=== PATIENT | female | born 1960 | race Hispanic/Latino ===

== ENCOUNTER 2017-09-02 20:09 | Observation (INO) | payer SELFPAY ==
[2017-09-02] MEDS ORDERED: Acetaminophen 325 MG TAB ONE (23:50)
[2017-09-03] MEDS ORDERED: Acetaminophen 325 MG TAB PO PRN (01:06)
[2017-09-03 01:22] VITALS: BMI 28.7
[2017-09-03] MEDS: Benzonatate 100 MG CAP PO PRN (03:13)
[2017-09-03] MEDS ORDERED: Dextrose 50% Abboject 50 ML SYRINGE SLOW IVP PRN (08:57)
[2017-09-03] MEDS ORDERED: Dextrose 5% in Water 1,000 ML IV PRN (08:57)
[2017-09-03] MEDS ORDERED: DULoxetine 60 MG CAP PO SCH (09:00)
[2017-09-03] MEDS ORDERED: guaiFENesin 100 MG/5 ML UDCUP PO PRN (09:11)
[2017-09-03] MEDS: HYDROcodone/Acetaminophen 7.5/325 mg Tablet PO PRN ×2 (09:17→15:38)
[2017-09-03] MEDS ORDERED: Diabetic Tussin 200 MG/10 ML UDCUP PO PRN (10:17)
[2017-09-03] MEDS: tiZANidine HCl 4 MG TAB PO PRN (12:16)
[2017-09-03] MEDS: HumaLOG 300 UNITS/3 ML VIAL SC PRN (12:16)
[2017-09-03 13:03] LABS: Free T4 (Free Thyroxine) 1.68 ng/dL (0.70-1.48)
[2017-09-03] MEDS ORDERED: Calcium Carbonate 500 MG ChewTAB PO PRN (14:35)
[2017-09-03] MEDS ORDERED: Bisacodyl 10 MG SUPP PR PRN (14:35)
[2017-09-03] MEDS ORDERED: Bisacodyl 5 MG TAB PO PRN (14:35)
[2017-09-03] MEDS ORDERED: Senokot 8.6 MG TAB PO PRN (14:35)
[2017-09-03] MEDS ORDERED: Ondansetron HCl/PF 4 MG/2 ML Vial IVP PRN (14:35)
[2017-09-03] MEDS ORDERED: Metoprolol Tartrate 100 MG TAB PO SCH (15:00)
[2017-09-03] MEDS: Gabapentin 300 MG CAP PO SCH ×2 (15:36→20:30)
[2017-09-03] MEDS: Ibuprofen 800 MG TAB PO SCH ×2 (16:07→20:30)
[2017-09-03] MEDS: Methimazole 10 MG TAB PO SCH ×2 (16:10→20:30)
--- NOTE | 2017-09-03 16:30 | HP ---
CHIEF COMPLAINT: Difference between the patient and the record. The patient's record seems to indic ate that hypoglycemia, altered mental status, and seizure is the etiology for the patient's presentat ion. The patient herself has a chief complaint of chronic cough x1 year and left knee discomfort and chronic back pain. HISTORY OF PRESENT ILLNESS: This is a 56-year-old female with what sounds like prior history of seiz ures, insulin-dependent diabetes, chronic pain, who presents after reportedly having convulsions in h er car. The patient is an extremely poor historian and is very tangential in providing a history. She does n ot have any family with her at this point in time. The patient is also Hungarian-speaking only and a [employer] packing and shipping clerk was utilized at bedside. It appears that the patient has had prior seizures before. She thinks they may or may not be associa barbara with low blood sugars. Patient has never seen a neurologist for these presumed seizures and stat es that at home when her observed her having one of these episodes, he will place lemon and m ilk in her mouth. The patient states that she uses insulin for her diabetes and this is prescribed by her primary care doctor. She does not know much else regarding her own diabetes. She states that she sometimes gets hypoglycemic episodes as well. She does not keep a blood sugar log. It appears that the patient also recently saw her primary care doctor and was placed on 2 antibiotics including ciprofloxacin and methimazole for unclear reasons. The patient indicates that there is so me sort of "infection" and proximally in her head and neck region, but is unable to further giv e detail. REVIEW OF SYSTEMS: As per HPI. Constitutional: The patient overtly denies any fevers, chills, or s ignificant weight loss or gain. Denies any dizziness, changes in visions, or active headache at this point in time. Cardiovascular: No chest pain, no chest pressure, no left-sided arm numbness or tin gling. Respiratory: No active congestion. Cough is as noted above. No record changer the last year a nd it is grossly nonproductive. Denies any known sick contacts. Gastrointestinal: Denies any overt nausea, vomiting, abdominal pain, diarrhea, or constipation. Genitourinary: Denies any issues with dysuria or changes in urinary frequency, quality, quantity, or odor. Musculoskeletal: The patient reported head pain and neck pain in the emergency department, which is currently resolved. No other active complaint. PAST MEDICAL HISTORY: As noted above, the patient is unfortunately poor historian. 1. She has insulin-dependent diabetes. 2. Question of seizures in the past. 3. Hypertension. 4. Status post back surgery. 5. Status post knee surgery. HOME MEDICATIONS: Please see the EMR for full details. As best we can tell, the patient came in wit h a bag of medications including old medications and new medications. Looking at the medications mos t recently filled and presumed to be active, the list is as follows: Metoprolol tartrate 100 mg p.o. b.i.d., metformin 1000 mg p.o. b.i.d., duloxetine 60 mg p.o. b.i.d., tramadol 50 mg p.o. t.i.d., ibu profen 800 mg p.o. t.i.d., gabapentin 600 mg p.o. t.i.d., ciprofloxacin 500 mg p.o. q.12h, methimazol e 10 mg p.o. t.i.d., hydrocodone/acetaminophen 1 tab p.o. q.6 hours p.r.n., naloxegol Movantik 1 tab p.o. daily, tizanidine 1 tab p.o. q.8 hours p.r.n. ALLERGIES: No known drug allergies. FAMILY HISTORY: No known family history of seizure disorder. SOCIAL HISTORY: The patient denies any active alcohol, tobacco, or illicit drug use. She lives at [facility] with her . She is currently a FULL CODE. PHYSICAL EXAMINATION: GENERAL: The patient is awake, alert, conversant, lying in the hospital bed. HEENT: Normocephalic, atraumatic. Moist mucous membranes. Equal ocular motions are intact. CARDIOVASCULAR: S1, S2. Pulses 2+ bilateral upper extremities. No murmurs, rubs, or gallops. No p itting pedal edema. RESPIRATORY: Reasonable air movement. No wheezes, rales, or rhonchi. No conversational dyspnea. ABDOMEN: Positive bowel sounds, soft, nontender to palpation. MUSCULOSKELETAL: Moving all 4 extremities independently and able to self-reposition in the bed witho ut difficulty or assist. [facility]09/02/2017, CT of the brain, impression, mild prominence of the third vent ricle and the lateral ventricles, significance uncertain. Question Chiari 1 malformation. Follow up nonemergent brain MRI as suggested unless clinically indicated sooner. No intracranial hemorrhage, midline shift, or mass effect. WBC 6.8, hemoglobin 10.0, hematocrit 31.9, platelets 276. Sodium 138, potassium 4.7, chloride 107, b icarbonate 22, BUN 30, creatinine 1.3, glucose 25, calcium 8.8, magnesium 2.2, total bilirubin 0.2, A ST 19, ALT 15, alkaline phosphatase 78. Troponin 0.018. Total protein 6.4, albumin 3.6, T4 1.68, T3 4.98. TSH 0.0025. UA is significant for 100 of protein, 100 of glucose, and trace leukocyte estera se. ASSESSMENT: A 56-year-old female, who presents with multiple complaints, prominently hypoglycemia al pablo with seizures. 1. Seizure by history. Patient seems to give a history that these may be associated with hypoglycem ia and that this is not her first occurrence. I appreciate Neurology consultation. We will need to also evaluate the patient's episodic hypoglycemia and her medication for her insulin-dependent diabet es. Serial neurological examinations along with close monitoring. 2. Insulin-dependent diabetes. Check a hemoglobin A1c. Closely monitor the patient's blood sugar a nd oral intake as well. 3. Hypothyroidism, noted on admission. I do not see that the patient is currently on any levothyrox ine. We will recheck her TSH and along with a T3 and T4. If the patient does have noted hypothyroid ism as confirmed on serologies on recheck, then we will initiate levothyroxine with close monitoring. 4. A question of some type of sinus infection, currently on ciprofloxacin and methimazole. We will attempt to obtain PCP records for etiology. 5. Chronic cough x1 year. In the setting of noted possible Chiari [address] of the h ead, question is patient has a cough headache. Symptomatic management and further outpatient monitor ing. 6. Chronic pain. Discussed with the patient a concern regarding her chronic opioid use. We will tr y to down taper while inpatient with ultimate goal of discontinuation. 7. Diet: Diabetic. 8. Activity as tolerated. 9. Deep venous thrombosis prophylaxis with enoxaparin. Thank you for asking me to care for the patient. Greater than 45 minutes were spent at patient's bedside.
[2017-09-03 17:01] LABS: Anion Gap 14 mmol/L (10-20); BUN (Urea Nitrogen) 17 mg/dL (9.8-20.1); Calc. Creatinine Clearance 97 mL/min (70-130); Carbon Dioxide 23 mmol/L (22-29); Chloride 106 mmol/L (98-107); Estimated GFR-MDRD 76; Glucose 146 mg/dL (70-105); Magnesium 1.7 mg/dL (1.6-2.6); Potassium 4.9 mmol/L (3.5-5.1); Sodium 138 mmol/L (136-145)
[2017-09-03] MEDS: DULoxetine 60 MG CAP PO SCH (20:30)
[2017-09-03] MEDS: Ciprofloxacin 500 MG TAB PO SCH (20:32)
[2017-09-03] MEDS ORDERED: Metoprolol Tartrate 25 MG TAB PO SCH (21:00)
[2017-09-04] MEDS: hydrALAZINE 20 MG/ML VIAL SLOW IVP PRN ×2 (00:51→07:33)
[2017-09-04] MEDS: HYDROcodone/Acetaminophen 7.5/325 mg Tablet PO PRN ×3 (00:55→20:34)
[2017-09-04] MEDS: ALPRAZolam 0.25 MG TAB PO PRN (02:13)
--- NOTE | 2017-09-04 02:24 | CON ---
DATE OF CONSULTATION: 09/03/2017 REFERRING PROVIDER: Tomas Mcadams MD REASON FOR CONSULTATION: Seizure. HISTORY OF PRESENT ILLNESS: Ms. Jacobo is a pleasant 56-year-old female who has been concern ed for evaluation of a seizure-like episode. History is obtained from the patient as well as her dic tated H&P note. Patient's history was being translated by nurse water treatment technician as patient is a non-Engli sh speaking . The patient reports that she was driving with her spine and suddenly, her husb and noticed that she stopped talking. He also noticed that she was looking in a glazed eye and not p aying attention when he called her name, she did not respond; when they reached home, he noticed that she was not responsive to any verbal or noxious stimuli. She was diaphoretic at that time which pro mpted him to call EMS. Prior to arrival of the EMS, patient's symptoms had resolved. Patient report s that she has been having seizures over the past 1 year. In the past, her seizures were secondary t o hypoglycemia. She had mentioned that when she would have this type of spells, her would gi ve her milk and lemon in her mouth which would help improve her spells. She had seen a physician for these episodes in the past and was not given a diagnosis of seizure at that time. PAST MEDICAL HISTORY: Significant for diabetes, hypertension, questionable seizure disorder. PAST SURGICAL HISTORY: Significant for lumbar spine surgery and knee surgery. CURRENT MEDICATIONS: Please review MAR. ALLERGIES: No known drug allergies. FAMILY HISTORY: Noncontributory. SOCIAL HISTORY: She denies alcohol use, smoking or illicit drug use. She is . REVIEW OF SYSTEMS: As mentioned above in HPI, otherwise negative. PHYSICAL EXAMINATION: VITAL SIGNS: Blood pressure of 187/74, pulse of 101, temperature of 97.9, respirations of 16 with sa ts of 98% on room air. GENERAL: Well-developed, well-nourished female in no apparent distress. RESPIRATORY: Clear to auscultation bilaterally. CARDIOVASCULAR: Regular rate and rhythm. NEUROLOGIC: Mental status: Patient is awake, alert, oriented x3. Speech and language: Fluent spee ch. Cranial nerves: Pupils are 3 mm and reactive. Visual gray are intact. Extraocular muscles a re intact. No nystagmus. Face is symmetric. Tongue and uvula are midline. Motor exam showed floyd l tone and bulk with a 5/5 strength in both upper and lower extremities. Sensory: Sensation is inta ct and symmetric. Deep tendon reflexes 1+ reflex in both upper extremities. Babinski: Plantar resp onses flexion bilaterally. Gait and Romberg coordination not tested. LABORATORY DATA: Reviewed, which included CMP, which is significant for glucose of 146, hemoglobin A 1c of 7.0. TSH was less than 0.0025. Free T4 1.68, free T3 of 4.98, otherwise unremarkable. IMAGING STUDIES: CT head without contrast was reviewed, which showed no acute intracranial abnormali ty. IMPRESSION: Convulsions, unspecified. PLAN: Ms. Jacobo is a pleasant 56-year-old female who presented with recurrent episodes of s eizures. At this time, I will recommend starting her on Keppra 500 mg b.i.d. If she remains seizure free overnight, she is okay to be discharged to home with outpatient followup appointment in - we wa. Continue supportive care. Continue current medical regimen. Thank you for consultation.
[2017-09-04 04:55] LABS: #Eosinphils 0.3 thou/uL (0.0-0.7); #Lymphocytes 1.6 thou/uL (1.20-3.40); #Monocytes 0.5 thou/uL (0.11-0.59); #Neutrophils 1.7 thou/uL (1.40-6.50); %Basophils 0.5 % (0.0-1.0); %Eosinophils 6.5 % (0.0-10.0); %Lymphocytes 38.5 % (21.0-51.0); %Monocytes 12.4 % (0.0-10.0); Hemoglobin 10.3 g/dL (12.0-16.0); Mean Corpuscular HGB CONC 33.6 g/dL (32.0-36.0); Mean Corpuscular Hemoglobin 29.3 pg (27.0-31.0); Mean Corpuscular Volume 87.4 fL (78.0-98.0); Mean Platelet Volume 7.3 fL (7.4-10.4); Platelet Count 227 thou/uL (130-400); RBC Distribution Width 12.7 % (11.5-14.5); Red Blood Cell (RBC) Count 3.53 mill/uL (4.20-5.40); White Blood Cell (WBC) Count 4.1 thou/uL (4.8-10.8)
[2017-09-04 05:09] LABS: Anion Gap 10 mmol/L (10-20); BUN (Urea Nitrogen) 16 mg/dL (9.8-20.1); Calc. Creatinine Clearance 106 mL/min (70-130); Calcium 8.8 mg/dL (7.8-10.44); Carbon Dioxide 26 mmol/L (22-29); Chloride 105 mmol/L (98-107); Estimated GFR-MDRD 83; Glucose 175 mg/dL (70-105); Potassium 4.2 mmol/L (3.5-5.1); Sodium 137 mmol/L (136-145)
[2017-09-04] MEDS: Gabapentin 300 MG CAP PO SCH ×3 (07:33→20:34)
[2017-09-04] MEDS: Metoprolol Tartrate 100 MG TAB PO SCH ×2 (08:46→20:34)
[2017-09-04] MEDS: DULoxetine 60 MG CAP PO SCH ×2 (08:47→20:34)
[2017-09-04] MEDS: Ciprofloxacin 500 MG TAB PO SCH ×2 (08:47→20:34)
[2017-09-04] MEDS: Methimazole 10 MG TAB PO SCH ×3 (08:47→20:55)
[2017-09-04] MEDS: Enoxaparin Sodium 40 MG/0.4 ML SYRINGE SC SCH (08:48)
[2017-09-04] MEDS: Ibuprofen 800 MG TAB PO SCH ×3 (08:50→20:34)
[2017-09-04] MEDS ORDERED: Enoxaparin Sodium 30 MG/0.3 ML SYRINGE SC SCH (09:00)
[2017-09-04] MEDS ORDERED: levETIRAcetam 500 MG TAB PO SCH ×2 (11:30)
[2017-09-04] MEDS: tiZANidine HCl 4 MG TAB PO PRN (11:45)
[2017-09-04] MEDS: HumaLOG 300 UNITS/3 ML VIAL SC PRN ×3 (11:45→20:35)
--- NOTE | 2017-09-04 13:58 | EKG ---
Test Reason : Blood Pressure : / mmHG Vent. Rate : 103 BPM Atrial Rate : 103 BPM P-R Int : 150 ms QRS Dur : 074 ms QT Int : 350 ms P-R-T Axes : 062 039 065 degrees QTc Int : 458 ms Sinus tachycardia Otherwise normal ECG No previous ECGs available Confirmed by IRINA HANSEN ([id number]) on 09/04/2017 1:58:13 PM Referred By: AZIZA Confirmed By:IRINA HANSEN
[2017-09-04] MEDS: levETIRAcetam 500 MG TAB PO SCH (20:34)
--- NOTE | 2017-09-04 23:25 | PDOC.PN ---
- Objective Resuscitation Status: Resuscitation Status FULL:Full Resuscitation Vital Signs & Weight: Vital Signs (12 hours) Temp Pulse Resp BP BP Pulse Ox 09/04/17 20:34 97.9 F 72 16 09/04/17 19:11 97.9 F 72 16 163/72 H 98 09/04/17 18:09 79 09/04/17 15:13 97.5 F L 152/67 H 69 L 09/04/17 12:18 173/72 H 09/04/17 11:30 98.2 F 77 18 188/75 H 98 Weight Weight 169 lb 12.8 oz I&O: 09/03/17 09/04/17 09/05/17 06:59 06:59 06:59 Intake Total 10 1000 450 Output Total 2550 1300 Balance 94 -7614 -279 Result Diagrams: 09/04/17 04:01 09/04/17 04:01 Additional Labs: Accuchecks 09/04/17 09/04/17 09/04/17 20:37 16:52 10:45 POC Glucose 249 H 208 H 237 H Dx/Plan - Plan * .
[2017-09-05] MEDS: hydrALAZINE 20 MG/ML VIAL SLOW IVP PRN ×2 (05:01→20:10)
[2017-09-05] MEDS: HYDROcodone/Acetaminophen 7.5/325 mg Tablet PO PRN (05:01)
[2017-09-05 05:04] LABS: #Eosinphils 0.3 thou/uL (0.0-0.7); #Lymphocytes 1.8 thou/uL (1.20-3.40); #Monocytes 0.6 thou/uL (0.11-0.59); #Neutrophils 1.8 thou/uL (1.40-6.50); %Eosinophils 6.7 % (0.0-10.0); %Lymphocytes 39.3 % (21.0-51.0); %Monocytes 12.8 % (0.0-10.0); %Neutrophils 40.2 % (42.0-75.0); Hemoglobin 10.4 g/dL (12.0-16.0); Mean Corpuscular HGB CONC 33.5 g/dL (32.0-36.0); Mean Corpuscular Hemoglobin 29.4 pg (27.0-31.0); Mean Platelet Volume 7.4 fL (7.4-10.4); Platelet Count 242 thou/uL (130-400); RBC Distribution Width 12.5 % (11.5-14.5); Red Blood Cell (RBC) Count 3.54 mill/uL (4.20-5.40); White Blood Cell (WBC) Count 4.5 thou/uL (4.8-10.8)
[2017-09-05 05:12] LABS: Anion Gap 11 mmol/L (10-20); BUN (Urea Nitrogen) 20 mg/dL (9.8-20.1); Calc. Creatinine Clearance 93 mL/min (70-130); Calcium 9.3 mg/dL (7.8-10.44); Carbon Dioxide 28 mmol/L (22-29); Chloride 105 mmol/L (98-107); Estimated GFR-MDRD 71; Glucose 183 mg/dL (70-105); Potassium 5.1 mmol/L (3.5-5.1); Sodium 139 mmol/L (136-145)
[2017-09-05] MEDS: HumaLOG 300 UNITS/3 ML VIAL SC PRN ×2 (06:28→13:25)
[2017-09-05] MEDS: Gabapentin 300 MG CAP PO SCH ×3 (09:29→20:09)
[2017-09-05] MEDS: Ibuprofen 800 MG TAB PO SCH ×3 (09:29→20:09)
[2017-09-05] MEDS: Metoprolol Tartrate 100 MG TAB PO SCH ×2 (09:30→20:08)
[2017-09-05] MEDS: DULoxetine 60 MG CAP PO SCH ×2 (09:30→20:09)
[2017-09-05] MEDS: Enoxaparin Sodium 40 MG/0.4 ML SYRINGE SC SCH (09:30)
[2017-09-05] MEDS: Methimazole 10 MG TAB PO SCH ×3 (09:30→20:10)
[2017-09-05] MEDS: levETIRAcetam 500 MG TAB PO SCH ×2 (09:30→20:09)
[2017-09-05] MEDS: Ciprofloxacin 500 MG TAB PO SCH ×2 (09:30→20:09)
[2017-09-05] MEDS: ALPRAZolam 0.25 MG TAB PO PRN ×2 (13:26→20:11)
[2017-09-05 13:39] LABS: EliA Thy New Method **** NEW METHOD ****
[2017-09-06] MEDS: ALPRAZolam 0.25 MG TAB PO PRN (03:11)
[2017-09-06] MEDS: hydrALAZINE 20 MG/ML VIAL SLOW IVP PRN (03:11)
--- NOTE | 2017-09-06 04:27 | PDOC.EVN ---
Event Note - Event Note Event Note: late entry for 09/05/2017 no new issues overnight pt is awaiting MSMR screening for suicidal ideation as endorsed by patient during this hospitalization otherwise medically cleared
[2017-09-06 04:31] LABS: #Eosinphils 0.4 thou/uL (0.0-0.7); #Lymphocytes 1.7 thou/uL (1.20-3.40); #Monocytes 0.5 thou/uL (0.11-0.59); #Neutrophils 2.3 thou/uL (1.40-6.50); %Basophils 0.4 % (0.0-1.0); %Eosinophils 7.3 % (0.0-10.0); %Lymphocytes 34.1 % (21.0-51.0); %Monocytes 10.9 % (0.0-10.0); %Neutrophils 47.3 % (42.0-75.0); Mean Corpuscular HGB CONC 33.6 g/dL (32.0-36.0); Mean Corpuscular Hemoglobin 29.3 pg (27.0-31.0); Mean Corpuscular Volume 87.1 fL (78.0-98.0); Mean Platelet Volume 7.2 fL (7.4-10.4); Platelet Count 253 thou/uL (130-400); RBC Distribution Width 12.5 % (11.5-14.5); Red Blood Cell (RBC) Count 3.75 mill/uL (4.20-5.40); White Blood Cell (WBC) Count 4.9 thou/uL (4.8-10.8)
[2017-09-06 04:41] LABS: Anion Gap 12 mmol/L (10-20); BUN (Urea Nitrogen) 20 mg/dL (9.8-20.1); Calc. Creatinine Clearance 96 mL/min (70-130); Calcium 9.4 mg/dL (7.8-10.44); Carbon Dioxide 25 mmol/L (22-29); Chloride 105 mmol/L (98-107); Estimated GFR-MDRD 74; Glucose 240 mg/dL (70-105); Potassium 4.5 mmol/L (3.5-5.1); Sodium 137 mmol/L (136-145)
[2017-09-06] MEDS: HumaLOG 300 UNITS/3 ML VIAL SC PRN (06:00)
--- NOTE | 2017-09-06 06:33 | PDOC.EVN ---
Event Note - Event Note Event Note: spoke with mental health person who states pt is ok to be discharged home.
[2017-09-06] MEDS: HYDROcodone/Acetaminophen 7.5/325 mg Tablet PO PRN (07:44)
[2017-09-06] MEDS ORDERED: Insulin NPH/Reg Insulin Hm 300 UNITS/3 ML VIAL SC SCH ×2 (09:00→21:00)
[2017-09-06] MEDS: Ciprofloxacin 500 MG TAB PO SCH (09:26)
[2017-09-06] MEDS: DULoxetine 60 MG CAP PO SCH (09:26)
[2017-09-06] MEDS: Gabapentin 300 MG CAP PO SCH ×2 (09:27→14:43)
[2017-09-06] MEDS: Ibuprofen 800 MG TAB PO SCH ×2 (09:27→14:42)
[2017-09-06] MEDS: Enoxaparin Sodium 40 MG/0.4 ML SYRINGE SC SCH (09:27)
[2017-09-06] MEDS: Metoprolol Tartrate 100 MG TAB PO SCH (09:27)
[2017-09-06] MEDS: levETIRAcetam 500 MG TAB PO SCH (09:27)
[2017-09-06] MEDS: Benzonatate 100 MG CAP PO PRN (09:28)
[2017-09-06] MEDS: Methimazole 10 MG TAB PO SCH ×2 (09:28→14:44)
--- NOTE | 2017-09-06 13:22 | RAD ---
2 VIEWS CHEST: Date: 09/06/17 PROVIDED CLINICAL HISTORY: Cough. FINDINGS: Comparison is made with the study dated 01/28/08. Cardiac and mediastinal silhouette is within normal limits. There is a somewhat stellate opacity in t he right suprahilar region along with prominence of each hilar region. Lungs appear otherwise clear. No pleural fluid or pneumothorax apparent. Vascular calcifications are seen. IMPRESSION: Right suprahilar opacity and possibly bilateral hilar lymph node enlargement. Correlation with chest CT recommended. CODE T. POS: [facility]
[2017-09-06] MEDS ORDERED: ALPRAZolam 0.25 MG TAB PO SCH (13:45)
--- NOTE | 2017-09-06 15:15 | PDOC.PN ---
- Subjective Encounter Start Date: 09/06/17 Encounter Start Time: 13:00 Patient requested something to keep her heart from racing. She also reports that her blood pressure is not well controlled. She is thinking about changing her PCP because it is too difficult to get from [place] to [place]. Still has some cough. - Objective Resuscitation Status: Resuscitation Status FULL:Full Resuscitation Vital Signs & Weight: Vital Signs (12 hours) Temp Pulse Resp BP BP Pulse Ox 09/06/17 11:49 98.4 F 78 20 130/102 H 98 09/06/17 07:45 97.6 F 80 16 09/06/17 07:34 97.6 F 80 16 157/79 H 97 09/06/17 06:03 97.6 F 76 20 174/72 H 96 Weight Weight 168 lb 3.2 oz I&O: 09/05/17 09/06/17 09/07/17 06:59 06:59 06:59 Intake Total 800 1280 660 Output Total 2250 1350 Balance -1450 -70 660 Result Diagrams: 09/06/17 04:14 09/06/17 04:14 Additional Labs: Accuchecks 09/06/17 09/06/17 09/05/17 11:53 06:02 21:37 POC Glucose 293 H 201 H 257 H 09/05/17 17:19 POC Glucose 156 H Phys Exam - Physical Examination Constitutional: NAD HEENT: oral pharynx no lesions Respiratory: no wheezing, no rales, no rhonchi, clear to auscultation bilateral Cardiovascular: RRR, no significant murmur, no rub Gastrointestinal: soft, non-tender, no distention, positive bowel sounds Musculoskeletal: no edema Psychiatric: normal affect Dx/Plan (1) Cough Code(s): R05 - COUGH Status: Acute Comment: CXR done today indicated an opacity at the right hilum. Will get CT. (2) Diabetes Code(s): E11.9 - TYPE 2 DIABETES MELLITUS WITHOUT COMPLICATIONS Status: Acute Comment: Had hypoglycemia concerns. Her current hospital dosing appears to be working well. Plan on discharging with that dose. (3) Seizure disorder Code(s): G40.909 - EPILEPSY, UNSP, NOT INTRACTABLE, WITHOUT STATUS EPILEPTICUS Status: Acute Comment: Started on Keppra. Will continue on with that. (4) Hypertension Code(s): I10 - ESSENTIAL (PRIMARY) HYPERTENSION Status: Acute Comment: Trying to avoid making any major changes in her meds. Should follow up with her PCP. On high dose beta nabor for hyperthyroidism. (5) Hyperthyroidism Code(s): E05.90 - THYROTOXICOSIS, UNSP WITHOUT THYROTOXIC CRISIS OR STORM Status: Acute Comment: Continue methimazole and beta nabor. TSH was normal. (6) Suicidal ideation Code(s): R45.851 - SUICIDAL IDEATIONS Status: Acute Comment: Cleared by [facility] for discharge. - Plan * .
[2017-09-06 15:28] VITALS: TEMP 98.1
--- NOTE | 2017-09-06 15:33 | CT ---
CT CHEST WITHOUT CONTRAST: Date: 09/06/17 PROVIDED CLINICAL HISTORY: Abnormal chest radiograph, cough. FINDINGS: The heart, pericardium, and great vessels are suboptimally evaluated without IV contrast, but demonst rate an unremarkable unenhanced CT appearance, with the exception of vascular calcification, includin g coronary calcium. There is conspicuous calcification at the origin of the left subclavian artery. Prominence of each hilar region radiographically is on the basis of prominence of the hilar vasculatu re. No definite evidence for lymph node enlargement with limitations due to lack of IV contrast. There is no concerning pulmonary parenchymal opacity with findings seen on chest radiograph likely on the basis of superimposition of normal structures. The airway appears patent and of normal caliber. There is no pleural fluid or pneumothorax apparent. The visualized portions of the upper abdomen demonstrate an unremarkable unenhanced CT appearance. Sm all gallstones are seen. The osseous structures demonstrate no concerning lytic or blastic lesions. IMPRESSION: 1. Abnormalities seen on chest radiograph are artifactual. 2. No evidence for an acute process. 3. Conspicuous atherosclerosis. 4. Cholelithiasis. POS: [facility]
[2017-09-06 16:20] VITALS: BP 168/75
--- NOTE | 2017-09-07 09:02 | DIS ---
DATE OF ADMISSION: 09/02/2017 DATE OF DISCHARGE: 09/06/2017 HISTORY OF PRESENT ILLNESS: The patient presented to the emergency department with giving some chall enging history. The patient apparently had some history of hypoglycemia and hyperthyroidism. She wa s transferred with the complaint of these things stating she recalled nothing. When she woke up, she was told she was in a car, having convulsions. Stated she has had this happen before twice, but has not followed up with anyone apparently prior to coming this facility. They indicated her blood gluc ose was 31 and she received 2 amps of D50. She had some generalized musculoskeletal symptoms and was subsequently noted to have generally stable vital signs. The patient had reported a chronic cough f or 1 year. She had been treated by her physician and was on Cipro at that time. It was felt that e patient was likely suffering from some hypoglycemia. A CT scan in the emergency department was per formed which revealed some enlargement of the third and fourth ventricles, but was felt not likely to be relevant to the current symptoms. HOSPITAL COURSE: The patient was admitted with hypoglycemia and possibly related to seizure. Neurol ogy was consulted and felt the patient would benefit from being on Keppra, which was initiated. The patient tolerated that well. The patient apparently developed some suicidal ideations as well and nelson bsequently [facility] was consulted. The patient had reported some strange incidents occurring at home inv olving her . Her did present to the facility and said that ____. She was ultimately evaluated by [facility] and cleared by them. Subsequently, a chest x-ray performed on the day of discharge revealed a possible stellate abnormality in the right hilar area. A CT scan was then performed of t he chest, which was essentially unremarkable and the x-ray findings were felt to be artifactual. Giv en that she was cleared by [facility] and Neurology, she was felt to be stable for discharge to home to [facility] outpatient followup. I had extensive conversation with the patient and her regarding her s ituation and need for followup. DISPOSITION: The patient is discharged to home. Her activity level is as tolerated. She is to be o n a diabetic diet. She will be on a reduced dose of 70/30 insulin which managed her blood sugar quit e well in the hospital at 10 units subcutaneously at bedtime and 20 units subcu q.a.m. She will also be on a new prescription for Keppra 500 mg b.i.d. She will continue with Movantik 1 ta b p.o. daily, tizanidine q.8 hours p.r.n. Her home pain medication with [place] q.6 hours p.r.n., Cipr o 500 q.12 hours, pantoprazole 10 mg t.i.d. She will also be on her usual metoprolol 100 mg p.o. b.i .d., tramadol 50 mg t.i.d., duloxetine 60 mg b.i.d., ibuprofen 800 mg t.i.d., gabapentin 600 t.i.d., and metformin 1000 mg b.i.d. She is to follow up with her PCP, although she is in the process of attempting to change her PCP to spencer morales ____ genaro. She can return to the emergency department should she have any problems prior to that time. The patient is also to follow up with Dr. Escobedo as instructed within 4-6 weeks.
== END 2017-09-06 18:12 | disposition home or self-care (01) ==
LOC: ERS 20:09 → EEVIPCON 23:20 → 2SW 23:20
PROVIDERS: ADMIT Family Medicine; ATTEND Family Medicine
DX: G40.909 Epilepsy, unspecified, not intractable, without status epilepticus (principal); E05.90 Thyrotoxicosis, unspecified without thyrotoxic crisis or storm; I10 Essential (primary) hypertension; R45.851 Suicidal ideations; E03.9 Hypothyroidism, unspecified; E11.649 Type 2 diabetes mellitus with hypoglycemia without coma; Z79.899 Other long term (current) drug therapy
CPT/HCPCS: 36415; 36416; 71046; 71250; 80048; 80307; 83036; 83735; 84439; 84443; 84481; 85025; 86376; 86800; 93005; 93010; 95816; 95819; 96372; 96374; 96376; A4216; G0378; J0360; J1650

== ENCOUNTER 2019-05-27 22:29 | Observation (INO) | payer SELFPAY ==
[2019-05-27] MEDS ORDERED: Morphine 4 MG/ML VIAL ONE (22:58)
[2019-05-27] MEDS ORDERED: Nitroglycerin 0.4 MG TAB (25 Tab Bottle) PO PRN (23:12)
[2019-05-27] MEDS ORDERED: Acetaminophen 325 MG TAB PO PRN (23:12)
[2019-05-27] MEDS ORDERED: Dextrose 50% Abboject 50 ML SYRINGE SLOW IVP PRN (23:18)
[2019-05-27] MEDS ORDERED: Dextrose 5% in Water 1,000 ML IV PRN (23:18)
[2019-05-27 23:21] LABS: Troponin I Less than 0.010 ng/mL (< 0.028)
[2019-05-27] MEDS ORDERED: HYDROcodone/Acetaminophen 5/325 mg Tablet PO PRN (23:38)
--- NOTE | 2019-05-28 00:20 | HP ---
CHIEF COMPLAINT: Chest pain. HISTORY OF PRESENT ILLNESS: Ms. Jacobo is a 58-year-old female with past medical history of diabetes mellitus, hypertension, and hyperlipidemia, presents to [place] ED with chief complaint of chest pain, this has been going on for 4 months. In the emergency room, the patient had a systolic blood pressure of 237, for which she was given 10 mg of IV labetalol. The blood pressure dropped to 130. The patient also noted to have a blood sugar more than 400. Given 5 units of insulin in the ED. The patient became diaphoretic with a blood glucose less than 70. Given lunch box. The D-dimer was elevated, CT angiogram of the chest showed no evidence of pulmonary embolism. The patient denies shortness of breath. The patient's initial troponin negative. Initial EKG; no acute finding. The patient is being admitted to hospital for further management. PAST MEDICAL HISTORY: As mentioned above in History of Present Illness. PAST PSYCHIATRIC HISTORY: Anxiety and depression. PAST SURGICAL HISTORY: 1. Back surgery. 2. Right knee surgery. SOCIAL HISTORY: She denies smoking, alcohol drinking, or drug abuse. FAMILY HISTORY: Reviewed and noncontributory. ALLERGIES: NO KNOWN ALLERGIES. HOME MEDICATIONS: Please see home medication reconciliation form for updated medications. REVIEW OF SYSTEMS: Review of 14 systems negative except what is mentioned in History of Present Illness. PHYSICAL EXAMINATION: GENERAL: The patient is awake, alert, in mild distress, anxious. VITAL SIGNS: Blood pressure 164/86, pulse is 88, respiratory rate is 16, and pulse oximetry is 99% on room air. HEENT: Head and neck; normocephalic, atraumatic. NECK: Supple. No JVD. CHEST: Fair bilateral air entry. CHEST WALL: Left chest wall tenderness. HEART: S1, S2. Regular. ABDOMEN: Soft, nontender. Bowel sounds present. NEUROLOGIC: Awake, alert, oriented x3. PSYCH: Anxious. EXTREMITIES: No clubbing or cyanosis. GENITOURINARY: No flank tenderness. No suprapubic tenderness. MUSCULOSKELETAL: Chest wall tenderness. LABORATORY DATA: Sodium 132, potassium 4.2, BUN is 23, and creatinine 1.1. Troponin less than 0.01. CTA of the chest, no evidence of pulmonary embolism and dilated central pulmonary arteries raising the possibility of pulmonary arterial hypertension. ASSESSMENT: 1. Chest pain, atypical, musculoskeletal, the patient's chest wall is tender. 2. Hypertensive urgency. The patient was given labetalol. Current blood pressure is better controlled. 3. Diabetes mellitus with hyperglycemia. The patient was given 5 units of insulin and blood sugar went down to less than 70 and became symptomatic. 4. Anxiety. 5. Hyperlipidemia. PLAN: 1. Admit. 2. Tele monitoring. 3. Serial troponins. 4. Aspirin. 5. Monitor and control blood pressure. 6. Monitor blood glucose. 7. The patient's chest pain is atypical and chest wall is tender ? musculoskeletal. 8. Reassess in a.m. 9. Reconcile home medications. 10. DVT prophylaxis as appropriate. 11. Expected length of stay at least 1 midnight if patient is stable and further workup negative. Job ID: [id number]
[2019-05-28 01:31] VITALS: BMI 22.4
[2019-05-28] MEDS ORDERED: traMADol HCl 50 MG TAB PO PRN (03:43)
[2019-05-28] MEDS ORDERED: HumaLOG 300 UNITS/3 ML VIAL SC PRN (03:44)
[2019-05-28 05:08] LABS: Anion Gap 13 mmol/L (10-20); BUN (Urea Nitrogen) 18 mg/dL (9.8-20.1); Calc. Creatinine Clearance 62 mL/min (70-130); Calcium 9.2 mg/dL (7.8-10.44); Carbon Dioxide 26 mmol/L (22-29); Chloride 100 mmol/L (98-107); Estimated GFR-MDRD 61; Glucose 505 mg/dL (70-105); Potassium 5.2 mmol/L (3.5-5.1); Sodium 134 mmol/L (136-145)
[2019-05-28 05:14] LABS: Troponin I 0.022 ng/mL (< 0.028)
[2019-05-28] MEDS ORDERED: Ketorolac Tromethamine 30 MG/ML VIAL IVP SCH (05:45)
[2019-05-28] MEDS ORDERED: Ketorolac Tromethamine 30 MG/ML VIAL IVP PRN (09:00)
[2019-05-28] MEDS ORDERED: Meloxicam 15 MG TAB PO SCH ×2 (09:00)
[2019-05-28] MEDS ORDERED: Non-Formulary Item 1 EACH (Gabapentin [Gabapentin] 600 MG) PO SCH (09:00)
[2019-05-28] MEDS ORDERED: Non-Formulary Item 1 EACH (Metformin Hcl [Metformin Hcl] 1,000 MG) PO SCH (09:00)
[2019-05-28] MEDS ORDERED: Losartan 25 MG TAB PO SCH (09:00)
[2019-05-28] MEDS ORDERED: Gabapentin 300 MG CAP PO SCH (09:00)
[2019-05-28] MEDS ORDERED: Metoprolol Tartrate 100 MG TAB PO SCH (09:00)
[2019-05-28] MEDS ORDERED: Aspirin 325 mg Enteric Coated Tablet PO SCH (09:00)
[2019-05-28] MEDS ORDERED: DULoxetine 60 MG CAP PO SCH (09:00)
[2019-05-28] MEDS ORDERED: Famotidine 20 MG TAB PO SCH (09:00)
[2019-05-28] MEDS ORDERED: Cyclobenzaprine 10 MG TAB PO PRN (09:12)
[2019-05-28] MEDS ORDERED: Polyethylene Glycol 3350 17 GM Packet PO SCH (09:15)
[2019-05-28] MEDS ORDERED: Senokot S 8.6-50 MG TAB PO SCH (09:15)
[2019-05-28] MEDS: traMADol HCl 50 MG TAB PO SCH ×2 (10:15→15:14)
[2019-05-28] MEDS: Methimazole 10 MG TAB PO SCH ×2 (10:27→15:14)
[2019-05-28 11:04] VITALS: TEMP 97.9
[2019-05-28] MEDS ORDERED: cloNIDine 0.1 MG TAB PO PRN (11:13)
[2019-05-28] MEDS: HumaLOG 300 UNITS/3 ML VIAL SC PRN ×2 (11:39→18:11)
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
[2019-05-28 15:20] VITALS: BP 155/69
[2019-05-28] MEDS ORDERED: metFORMIN 500 MG TAB PO SCH (17:00)
[2019-05-28] MEDS ORDERED: Atorvastatin Calcium 20 MG TAB PO SCH (21:00)
== END 2019-05-28 19:06 | disposition home or self-care (01) ==
LOC: ERS 22:29 → 2SW 23:16
PROVIDERS: ADMIT Internal Medicine; ATTEND Internal Medicine
DX: R07.89 Other chest pain (principal); R79.89 Other specified abnormal findings of blood chemistry; I12.9 Hypertensive chronic kidney disease with stage 1 through stage 4 chronic kidney disease, or unspecified chronic kidney disease; E11.22 Type 2 diabetes mellitus with diabetic chronic kidney disease; I16.0 Hypertensive urgency; E11.65 Type 2 diabetes mellitus with hyperglycemia; N18.3 Chronic kidney disease, stage 3 (moderate); F41.9 Anxiety disorder, unspecified; E78.5 Hyperlipidemia, unspecified; D64.9 Anemia, unspecified; F32.9 Major depressive disorder, single episode, unspecified; Z98.890 Other specified postprocedural states; Z79.82 Long term (current) use of aspirin; Z79.4 Long term (current) use of insulin; Z79.899 Other long term (current) drug therapy
CPT/HCPCS: 36415; 36416; 80048; 84484; 93005; 94760; 96374; G0378; J1885; J2270